=== PATIENT | male | born 1995 | race Caucasian/White ===

== ENCOUNTER 2019-06-23 11:08 | Emergency (ER) | payer OTHER ==
--- NOTE | 2019-06-23 12:33 | UC ---
Eye Complaint HPI - HPI Summary HPI Summary: patient felt a "soreness" in upper L eyelid 2 days ago. over past 2 days lid has become red and swollen no discharge from eye, no visual changes, no FB sensation - History of Current Complaint Chief Complaint: UCEye Stated Complaint: LEFT EYE COMPLAINT Time Seen by Provider: 06/23/19 12:20 Hx Obtained From: Patient Onset/Duration: Gradual Onset Timing: Constant Severity Initially: Mild Severity Currently: Mild Pain Intensity: 2 Location of Injury: Eye Lid (upper) Character: Dull - soreness Aggravating Factor(s): Nothing Alleviating Factor(s): Nothing - did try OTC moisturizing drops Associated Signs And Symptoms: Positive: Negative. Negative: Photophobia, Drainage (Clear), Drainage (Purulent), Vision Impairment Left, Fever - Risk Factors Penetrating Injury Risk Factor: Negative - Allergies/Home Medications Allergies/Adverse Reactions: Allergies Allergy/AdvReac Type Severity Reaction Status Date / Time adhesive tape Allergy Rash Verified 06/23/19 11:38 Home Medications: Home Medications NK [No Home Medications Reported] 06/23/19 [History Confirmed 06/23/19] PMH/Surg Hx/FS Hx/Imm Hx Previously Healthy: Yes - Surgical History Surgical History: Yes Surgery Procedure, Year, and Place: pilonidal cysts. wisdom teeth - Family History Known Family History: Positive: Non-Contributory - Social History Occupation: Student Lives: Dormitory/Roommates Alcohol Use: Rare Substance Use Type: None Smoking Status (MU): Never Smoked Tobacco Review of Systems All Other Systems Reviewed And Are Negative: Yes Constitutional: Positive: Negative. Negative: Fever Skin: Positive: Negative Eyes: Negative: Blurred Vision, Drainage, Eye Redness, Photophobia ENT: Positive: Negative Respiratory: Positive: Negative Cardiovascular: Positive: Negative Neurological: Positive: Negative. Negative: Headache Psychological: Positive: Negative Is Patient Immunocompromised?: No Physical Exam Triage Information Reviewed: Yes Appearance: Well-Appearing, No Pain Distress, Well-Nourished Vital Signs: Initial Vital Signs Temp 98.1 F 06/23/19 11:34 Pulse 75 06/23/19 11:34 Resp 16 06/23/19 11:34 BP 103/61 06/23/19 11:34 Pulse Ox 100 06/23/19 11:34 Vital Signs Reviewed: Yes Eyes: Positive: Conjunctiva Clear, Other: - L upper eye lid is mildly erythemic and swollen with small raised area under lid at 11 o'clock. Negative: Discharge ENT Exam: Normal ENT: Negative: Sinus tenderness Respiratory Exam: Normal Respiratory: Positive: Lungs clear Cardiovascular Exam: Normal Cardiovascular: Positive: RRR Neurological Exam: Normal Psychological Exam: Normal Skin Exam: Normal Eye Complaint Course/Dx - Differential Dx/Diagnosis Differential Diagnosis/HQI/PQRI: Conjunctivitis, Corneal Abrasion, Foreign Body , Other Provider Diagnosis: [facility] ED - Sign-Out/Discharge Documenting (check all that apply): Patient Departure All imaging exams completed and their final reports reviewed: No Studies - Discharge Plan Condition: Good Disposition: HOME Patient Education Materials: Paulina (ED) Referrals: [facility] [Primary Care Provider] - 2 Days (if no better) Additional Instructions: apply warm compress to eye every 2 hours for 15-20 minutes return if you develop eye drainage or visual changes - Billing Disposition and Condition Condition: GOOD Disposition: Home
== END 2019-06-23 12:44 | disposition home or self-care (01) ==
LOC: UCEAST 11:08
DX: H00.14 Chalazion left upper eyelid (principal); Z91.09 Other allergy status, other than to drugs and biological substances
CPT/HCPCS: 99201; G0463